=== PATIENT | male | born 1990 | race African-American/Black ===

== ENCOUNTER 2019-02-05 05:04 | Emergency (ER) | payer SELFPAY ==
[~2019-02-05] VITALS: Ht 172.7 cm; Wt 91.0 kg
[2019-02-05] MEDS ORDERED: HYDROCODONE/ACETAMINOPHEN 5/325MG TABLET PO ONE (06:00)
[2019-02-05] MEDS ORDERED: SODIUM CHLORIDE 0.9% 1,000 ML IV ONE (06:29)
[2019-02-05] MEDS ORDERED: TETANUS, DIPHTHERIA, PERTUSSIS VAC/PF 0.5ML (>7YR OLD) IM ONE (06:30)
[2019-02-05] MEDS ORDERED: CEFAZOLIN 1000MG PREMIX 50 ML IV ONE (06:30)
[2019-02-05 07:01] LABS: CLARITY URINE CLEAR (CLEAR); COLOR URINE YELLOW (YELLOW); KETONES URINE NEGATIVE (NEGATIVE); LEUKOCYTE ESTERASE URINE NEGATIVE (NEGATIVE); NITRITE URINE NEGATIVE (NEGATIVE); OCCULT BLOOD URINE NEGATIVE (NEGATIVE); PROTEIN URINE TRACE (NEGATIVE); SPECIFIC GRAVITY URINE 1.012 (1.005-1.030); UROBILINOGEN URINE 0.2 E.U./dL (0.2-1.0)
[2019-02-05 07:10] LABS: *AMPHETAMINES SCREEN URINE PRESUMTIVE POSITIVE (NEGATIVE); *BARBITURATES SCREEN URINE NEGATIVE (NEGATIVE); *BENZODIAZEPINES SCREEN URINE NEGATIVE (NEGATIVE); *COCAINE SCREEN URINE NEGATIVE (NEGATIVE); METHADONE URINE SCREEN NEGATIVE (NEGATIVE); OPIATES URINE SCREEN NEGATIVE (NEGATIVE)
[2019-02-05 07:11] LABS: CANNABINOID URINE SCREEN PRESUMTIVE POSITIVE (NEGATIVE); CHLORIDE 108 mEq/L (98-107); PHENCYCLIDINE URINE SCREEN NEGATIVE (NEGATIVE)
[2019-02-05 07:16] LABS: BASOPHILS % 0.2 % (0.0-2.0); EOSINOPHILS % 0.1 % (0.0-5.0); HEMATOCRIT. 42.1 % (42.0-52.0); HEMOGLOBIN. 14.4 g/dL (14.0-18.0); LYMPHOCYTES % 13.4 % (20.0-50.0); MEAN CORPUSCULAR HEMOGLOBIN 26.5 pg (28.0-32.0); MEAN CORPUSCULAR VOLUME 77.3 fL (80.0-94.0); MEAN PLATELET VOLUME 8.4 fl (7.4-10.4); MONOCYTES % 5.4 % (2.0-8.0); NEUTROPHILS % 80.9 % (40.0-76.0); PLATELET 224 x1000/uL (130-400); RED BLOOD CELL COUNT 5.44 mill/uL (4.7-6.1); RED CELL DISTRIBUTION WIDTH 13.8 % (11.6-14.6)
[2019-02-05 07:20] LABS: ETHANOL BLOOD 218 mg/dL
[2019-02-05] MEDS ORDERED: CALCIUM CARBONATE/VITAMIN D3 500MG TABLET PO ONE (08:45)
[2019-02-05] MEDS ORDERED: IOHEXOL-350 100 ML BOTTLE ONE (09:59)
[2019-02-05] MEDS: CEPHALEXIN 250MG CAPSULE PO SCH (19:40)
[2019-02-06] MEDS: CEPHALEXIN 250MG CAPSULE PO SCH ×2 (08:12→18:58)
[2019-02-07] MEDS: CEPHALEXIN 250MG CAPSULE PO SCH (20:32)
[2019-02-08 12:00] VITALS: BP 118/70
== END 2019-02-08 12:18 | disposition home or self-care (01) ==
LOC: ER 05:04
DX: S81.801A Unspecified open wound, right lower leg, initial encounter (principal); E16.2 Hypoglycemia, unspecified; X95.9XXA Assault by unspecified firearm discharge, initial encounter; Y93.9 Activity, unspecified; Y92.9 Unspecified place or not applicable; Z59.0 Homelessness
CPT/HCPCS: 36415; 72191; 73560; 73590; 73706; 80053; 80305; 80320; 81003; 85025; 90715; 99284; J0690; J7030; Q9967; Z7610; G0480